=== PATIENT | female | born 1995 | race Caucasian/White ===

== ENCOUNTER 2017-09-19 18:02 | Emergency (ER) | payer OTHER ==
[~2017-09-19] VITALS: Ht 162.6 cm; Wt 63.8 kg
[2017-09-19 19:09] VITALS: BP 116/83
[2017-09-19] MEDS ORDERED: AMOXICILLIN500 MG PO (19:25)
== END 2017-09-19 19:25 | disposition home or self-care (01) | DRG 605 ==
LOC: ED 18:02
DX: S81.012A Laceration without foreign body, left knee, initial encounter (principal); W01.110A Fall on same level from slipping, tripping and stumbling with subsequent striking against sharp glass, initial encounter; Y93.89 Activity, other specified; Y92.833 Campsite as the place of occurrence of the external cause